=== PATIENT | female | born 1980 | race Caucasian/White ===

== ENCOUNTER 2019-04-15 06:20 | Emergency (ER) | payer MEDICAID ==
[~2019-04-15] VITALS: Ht 160 cm; Wt 70.0 kg
[2019-04-15 06:28] VITALS: BP 112/64; PULSE 74; RESP 16; Ht 160 cm; Wt 70.0 kg
[2019-04-15] MEDS ORDERED: ONDANSETRON (ODT) 4 MG TAB ODT STA (06:39)
--- NOTE | 2019-04-15 06:45 | ERD ---
ER Documentation Chief Complaint Chief Complaint pt is bib family with c/o abd pain 19 wks preg, HPI Patient is a 38 years old female at 19 weeks gestation presenting to the clinic for left-sided abdominal pain since yesterday. Patient rates her pain as 5 out of 10 and denies any further description of her pain. Patient denies fever, chills, night sweats, urinary symptoms, bloating, hematochezia. Patient admits to a history of enlarged large intestine (patient cannot recall name of diagnosis) and opted out of surgery as per PCP recommended surgery. She admits to nausea without emesis that started yesterday. ROS All systems reviewed and are negative except as per history of present illness. Medications Home Meds Active Scripts Nitrofurantoin Monohyd Macrocr* (Macrobid*) 100 Mg Capsr, 100 MG PO BID for 7 Days, #14 CAP Prov:SHANIA JONES PA-C 04/15/19 Allergies Allergies: Coded Allergies: No Known Allergy (Unverified , 04/15/19) PMhx/Soc History of enlarged GI tract (possible colitis) History of Surgery: No Anesthesia Reaction: No Hx Neurological Disorder: No Hx Respiratory Disorders: No Hx Cardiac Disorders: No Hx Psychiatric Problems: No Hx Miscellaneous Medical Probl: No Hx Alcohol Use: No Hx Substance Use: No Hx Tobacco Use: No Physical Exam Vitals Vital Signs Date Temp Pulse Resp B/P (MAP) Pulse Ox O2 O2 Flow FiO2 Time Delivery Rate 04/15/19 98.9 74 16 112/64 98 06:28 (80) Physical Exam Const: No acute distress Head: Atraumatic Eyes: Normal Conjunctiva Resp: Clear to auscultation bilaterally Cardio: Regular rate and rhythm, no murmurs Abd: Soft, non tender, non distended. Normal bowel sounds. Negative [place] sign, Rovsing sign, McBurney's point tenderness, guarding, rebound tenderness, [place] sign, Gallagher Rodríguez sign. Skin: No petechiae or rashes Back: No midline or flank tenderness. Negative CVAT. Neur: Awake and alert Psych: Normal Mood and Affect Result Diagram: 04/15/19 0656 04/15/19 0656 Results 24 hrs Laboratory Tests Test 04/15/19 06:56 White Blood Count 11.3 10^3/ul Red Blood Count 4.14 10^6/ul Hemoglobin 11.1 g/dl Hematocrit 33.1 % Mean Corpuscular Volume 80.0 fl Mean Corpuscular Hemoglobin 26.8 pg Mean Corpuscular Hemoglobin Concent 33.5 g/dl Red Cell Distribution Width 14.2 % Platelet Count 259 10^3/UL Mean Platelet Volume 9.9 fl Immature Granulocytes % 0.900 % Neutrophils % 69.0 % Lymphocytes % 23.9 % Monocytes % 5.0 % Eosinophils % 0.7 % Basophils % 0.5 % Nucleated Red Blood Cells % 0.0 /100WBC Immature Granulocytes # 0.100 10^3/ul Neutrophils # 7.8 10^3/ul Lymphocytes # 2.7 10^3/ul Monocytes # 0.6 10^3/ul Eosinophils # 0.1 10^3/ul Basophils # 0.1 10^3/ul Nucleated Red Blood Cells # 0.0 10^3/ul Urine Color YELLOW Urine Clarity SLIGHTLY CLOUDY Urine pH 6.0 Urine Specific [place] 1.014 Urine Ketones NEGATIVE mg/dL Urine Nitrite NEGATIVE mg/dL Urine Bilirubin NEGATIVE mg/dL Urine Urobilinogen NEGATIVE mg/dL Urine Leukocyte Esterase TRACE Marilia/ul Urine Microscopic RBC 1 /HPF Urine Microscopic WBC 4 /HPF Urine Squamous Epithelial Cells FEW /HPF Urine Bacteria FEW /HPF Urine Hemoglobin NEGATIVE mg/dL Urine Glucose NEGATIVE mg/dL Urine Total Protein NEGATIVE mg/dl Sodium Level 140 mmol/L Potassium Level 3.9 mmol/L Chloride Level 106 mmol/L Carbon Dioxide Level 21 mmol/L Anion Gap 13 Blood Urea Nitrogen 7 mg/dl Creatinine 0.44 mg/dl Est Glomerular Filtrat Rate mL/min > 60 mL/min Glucose Level 92 mg/dl Calcium Level 9.2 mg/dl Total Bilirubin 0.3 mg/dl Direct Bilirubin 0.00 mg/dl Indirect Bilirubin 0.3 mg/dl Aspartate Amino Transf (AST/SGOT) 19 IU/L Alanine Aminotransferase (ALT/SGPT) 17 IU/L Alkaline Phosphatase 80 IU/L Total Protein 7.8 g/dl Albumin 4.1 g/dl Globulin 3.70 g/dl Albumin/Globulin Ratio 1.10 Lipase 42 U/L Current Medications Medications Dose Sig/Jose Start Time Status Last (Trade) Ordered Route PRN Stop Time Admin Dose Reason Admin 650 mg ONCE ONCE 04/15/19 DC 04/15/19 Acetaminophen PO 07:00 06:55 (Tylenol 04/15/19 07:01 Tab) Ondansetron 8 mg ONCE STAT 04/15/19 DC 04/15/19 HCl (Zofran ODT 06:39 06:55 Odt) 04/15/19 06:41 Procedures/MDM Patient was seen and evaluated for left-sided abdominal pain and nausea. CBC, CMP, lipase, urinalysis revealed mild leukocytosis, trace leukocyte Estrace otherwise unremarkable lab values. Abdominal ultrasound is unremarkable. Patient was given Tylenol and Zofran in the ED. low suspicion of appendicitis, colitis, sepsis. Patient is stable and ready for discharge. Follow-up with PCP and [facility]. Patient will be discharged with Macrobid for UTI. Departure Diagnosis: Primary Impression: UTI (urinary tract infection) Urinary tract infection type: site unspecified Hematuria presence: without hematuria Qualified Codes: N39.0 - Urinary tract infection, site not specified Condition: Stable Patient Instructions: Understanding Urinary Tract Infections (UTIs) Referrals: [facility] Additional Instructions: Paciente aconseja volver a Departamento de urgencias inmediatamente para sntomas nuevos o que empeoran . Paciente aconseja posteriores con el PCP en 2-3 ibarra . Paciente verbaliza la comprehensin y est de acuerdo con el tratamiento y el curso de accin. Si el paciente no tiene ninguna de atencin primaria pueden seguir con [facility] [address] [place] [address] o [facility] + [address] [address] SHANIA JONES PA-C Apr 15, 2019 06:45
[2019-04-15] MEDS ORDERED: ACETAMINOPHEN 325 MG TAB PO ONE (07:00)
[2019-04-15] MEDS ORDERED: NITR-58 PO (08:27)
== END 2019-04-15 08:38 | disposition home or self-care (01) ==
LOC: FTE 06:20
DX: O23.42 Unspecified infection of urinary tract in pregnancy, second trimester (principal); Z3A.19 19 weeks gestation of pregnancy
CPT/HCPCS: 36415; 76705; 80053; 81001; 83690; 85025; Z7502; Z7610